=== PATIENT | male | born 1985 | race Caucasian/White ===

== ENCOUNTER 2017-07-11 02:30 | Emergency (ER) | payer OTHER, BC ==
[2017-07-11] MEDS ORDERED: Diphtheria,Pertussis(Acell),Tetanus Vaccine 0.5 ML Syringe IM ONE (02:40)
[2017-07-11] MEDS ORDERED: Lidocaine 1% 20 ML MDV INJECT ONE (02:44)
--- NOTE | 2017-07-11 02:47 | EDM.PDOC ---
ED HPI GENERAL MEDICAL PROBLEM - General Chief Complaint: Laceration Stated Complaint: CUT ON RIGHT RING FINGER Time Seen by Provider: 07/11/17 02:45 Source of Information: Reports: Patient - History of Present Illness INITIAL COMMENTS - FREE TEXT/NARRATIVE: HISTORY AND PHYSICAL: History of present illness: Patient presents with laceration distal fourth digit on the lateral border approximately 2 cm long, patient was at work, he cut some electrical tape with a razor slipping and cutting his finger into her No fever nausea vomiting chills sweats reddened no redness warmth or exudate Review of systems: As per history of present illness and below otherwise all systems reviewed and negative. Past medical history: As per history of present illness and as reviewed below otherwise noncontributory. Surgical history: As per history of present illness and as reviewed below otherwise noncontributory. Social history: No reported history of drug or alcohol abuse. Family history: As per history of present illness and as reviewed below otherwise noncontributory. Physical exam: HEENT: Atraumatic, normocephalic, pupils reactive, negative for conjunctival pallor or scleral icterus, mucous membranes moist, throat clear, neck supple, nontender, trachea midline. Lungs: Clear to auscultation, breath sounds equal bilaterally, chest nontender. Heart: S1S2, regular, negative for clicks, rubs, or JVD. Abdomen: Soft, nondistended, nontender. Negative for masses or hepatosplenomegaly. Negative for costovertebral tenderness. Pelvis: Stable nontender. Genitourinary: Deferred. Rectal: Deferred. Extremities: Atraumatic, negative for cords or calf pain. Neurovascular unremarkable. Neuro: Awake, alert, oriented. Cranial nerves II through XII unremarkable. Cerebellum unremarkable. Motor and sensory unremarkable throughout. Exam nonfocal. Diagnostics: Clinical Therapeutics: []Tetanus status is updated Lidocaine Wound cleansed and explored Tendon function intact perineum post suture Standard wound care instructions Sutures out in 10 days #3 5-0 Prolene sutures interrupted No complication no complaint Excellent approximation Impression: []2 cm linear laceration distal fourth digit Definitive disposition and diagnosis as appropriate pending reevaluation and review of above. Right 4-Ring finger Pain Score (Numeric/FACES): 2 - Related Data Allergies Allergy/AdvReac Type Severity Reaction Status Date / Time Sulfa (Sulfonamide Allergy Rash Verified 07/11/17 02:48 Antibiotics) Home Meds: Home Meds . [No Known Home Meds] 02/23/14 [History] Past Medical History - Past Health History Medical/Surgical History: Denies Medical/Surgical History Social & Family History - Alcohol Use Days Per Week of Alcohol Use: 0 - Recreational Drug Use Recreational Drug Use: No ED ROS GENERAL - Review of Systems Review Of Systems: ROS reveals no pertinent complaints other than HPI. ED EXAM, SKIN/RASH Exam: See Below Course - Vital Signs Last Recorded V/S: Last Vital Signs Temp 36.4 C 07/11/17 02:42 Pulse 75 07/11/17 02:42 Resp 17 07/11/17 02:42 BP 159/98 H 07/11/17 02:42 Pulse Ox 97 07/11/17 02:42 - Orders/Labs/Meds Orders: Active Orders 24 hr Category Date Time Status Vaccines to be Administered [RC] PER UNIT ROUTINE Care 07/11/17 02:41 Active Meds: Medications Discontinued Medications Generic Name Dose Route Start Last Admin Trade Name Christine PRN Reason Stop Dose Admin Bacitracin 1 dose 07/11/17 02:58 07/11/17 03:01 Bacitracin Oint 1 Gm TOP 07/11/17 02:59 1 dose ONETIME ONE Administration Diphtheria/Tetanus/Acell Pertussis 0.5 ml 07/11/17 02:40 07/11/17 02:53 Adacel IM 07/11/17 02:41 0.5 ml .ONCE ONE Administration Lidocaine HCl 20 ml 07/11/17 02:44 07/11/17 02:57 Xylocaine 1% INJECT 07/11/17 02:45 20 ml ONETIME ONE Administration Departure - Departure Time of Disposition: 03:04 Disposition: Home, Self-Care 01 Condition: Good Clinical Impression: Laceration - Discharge Information Referrals: PCP,None [Primary Care Provider] - Forms: ED Department Discharge Additional Instructions: Bacitracin Telfa dressing Splint for protection Standard wound care instructions Keep wound clean and dry for 48 hours Return if redness warmth pus drainage or fever nausea vomiting chills sweats should this develop Sutures out in 10 days, return to ER or primary care physician/occupational health clinic The following information is given to patients seen in the emergency department who are being discharged to home. This information is to outline your options for follow-up care. We provide all patients seen in our emergency department with a follow-up referral. The need for follow-up, as well as the timing and circumstances, are variable depending upon the specifics of your emergency department visit. If you don't have a primary care physician on staff, we will provide you with a referral. We always advise you to contact your personal physician following an emergency department visit to inform them of the circumstance of the visit and for follow-up with them and/or the need for any referrals to a consulting specialist. The emergency department will also refer you to a specialist when appropriate. This referral assures that you have the opportunity for follow-up care with a specialist. All of these measure are taken in an effort to provide you with optimal care, which includes your follow-up. Under all circumstances we always encourage you to contact your private physician who remains a resource for coordinating your care. When calling for follow-up care, please make the office aware that this follow-up is from your recent emergency room visit. If for any reason you are refused follow-up, please contact the [facility] emergency department at and asked to speak to the emergency department charge nurse. - My Orders Last 24 Hours: My Active Orders 07/11/17 02:41 Vaccines to be Administered [RC] PER UNIT ROUTINE - Assessment/Plan Last 24 Hours: My Active Orders 07/11/17 02:41 Vaccines to be Administered [RC] PER UNIT ROUTINE
[2017-07-11] MEDS ORDERED: Bacitracin Oint 1 GM U/D Packet TOP ONE (02:58)
[2017-07-11 03:34] VITALS: BP 135/90
== END 2017-07-11 03:20 | disposition home or self-care (01) ==
LOC: MW.ED 02:30
DX: S61.214A Laceration without foreign body of right ring finger without damage to nail, initial encounter (principal); Z88.2 Allergy status to sulfonamides; Z23 Encounter for immunization; W26.8XXA Contact with other sharp object(s), not elsewhere classified, initial encounter
CPT/HCPCS: 12001; 90471; 90715; 99282; 99283-25

== ENCOUNTER 2018-01-18 21:06 | Observation (INO) | payer BC, OTHER ==
[2018-01-18] MEDS ORDERED: Ondansetron 4 MG/2 ML SDV IVPUSH ONE (21:39)
[2018-01-18] MEDS ORDERED: Ketorolac 30 MG/ML SDV IVPUSH ONE (21:39)
[2018-01-18] MEDS ORDERED: Sodium Chloride 0.9% 1,000 ML IV ONE (21:39)
--- NOTE | 2018-01-18 21:47 | EDM.PDOC ---
<Alejandro Smiley - Last Filed: 01/18/18 23:47> ED HPI GENERAL MEDICAL PROBLEM - General Chief Complaint: Genitourinary Problem Stated Complaint: POSSIBLE UTI Time Seen by Provider: 01/18/18 21:11 suprapubic Pain Score (Numeric/FACES): 8 - Related Data Allergies Allergy/AdvReac Type Severity Reaction Status Date / Time Sulfa (Sulfonamide Allergy Rash Verified 01/18/18 21:47 Antibiotics) Home Meds: Home Meds ARIPiprazole [Abilify] 10 mg PO DAILY 01/19/18 [History] Cyclobenzaprine [Flexeril] 10 mg PO TID PRN 01/19/18 [History] Dicyclomine [Bentyl] 10 mg PO QID 01/19/18 [History] LORazepam 1 mg PO BEDTIME 01/19/18 [History] Lisinopril 20 mg PO DAILY 01/19/18 [History] Losartan [Cozaar] 50 mg PO DAILY 01/19/18 [History] Metoprolol Succinate [Toprol XL] 25 mg PO DAILY 01/19/18 [History] Ondansetron [Zofran ODT] 4 mg PO Q6H PRN 01/19/18 [History] Prazosin [Minpress] 1 mg PO BEDTIME 01/19/18 [History] Sertraline [Zoloft] 50 mg PO BEDTIME 01/19/18 [History] buPROPion [Wellbutrin] 300 mg PO DAILY 01/19/18 [History] hydrOXYzine HCl [hydrOXYzine] 50 mg PO BID PRN 01/19/18 [History] Sulfamethoxazole/Trimethoprim [Bactrim Ds Tablet] 1 each PO BID #20 tablet 01/20 [Rx] levETIRAcetam [Keppra] 500 mg PO BID 01/20/18 [History] Course - Vital Signs Last Recorded V/S: Last Vital Signs Temp 97.7 F 01/20/18 08:00 Pulse 91 01/20/18 08:51 Resp 19 01/20/18 08:00 BP 143/82 H 01/20/18 08:52 Pulse Ox 97 01/20/18 09:55 - Orders/Labs/Meds Labs: Laboratory Tests 04/14/18 04/14/18 04/14/18 Range/Units 21:37 21:37 21:37 WBC 16.86 H (4.0-11.0) K/uL RBC 4.81 (4.50-5.90) M/uL Hgb 14.7 (13.0-17.0) g/dL Hct 42.4 (38.0-50.0) % MCV 88.1 (80.0-98.0) fL MCH 30.6 (27.0-32.0) pg MCHC 34.7 (31.0-37.0) g/dL RDW Std Deviation 43.5 (28.0-62.0) fl RDW Coeff of Joan 14 (11.0-15.0) % Plt Count 264 (150-400) K/uL MPV 10.40 (7.40-12.00) fL Neut % (Auto) 77.1 (48.0-80.0) % Lymph % (Auto) 11.2 L (16.0-40.0) % [place] % (Auto) 11.0 (0.0-15.0) % Eos % (Auto) 0.5 (0.0-7.0) % Baso % (Auto) 0.2 (0.0-1.5) % Neut # (Auto) 13.0 H (1.4-5.7) K/uL Lymph # (Auto) 1.9 (0.6-2.4) K/uL [place] # (Auto) 1.9 H (0.0-0.8) K/uL Eos # (Auto) 0.1 (0.0-0.7) K/uL Baso # (Auto) 0.0 (0.0-0.1) K/uL Nucleated RBC % 0.0 /100WBC Nucleated RBCs # 0 K/uL Sodium 138 (136-148) mmol/L Potassium 4.5 (3.5-5.1) mmol/L Chloride 102 (98-107) mmol/L Carbon Dioxide 26.8 (21.0-32.0) mmol/L BUN 16 (7.0-18.0) mg/dL Creatinine 1.3 (0.8-1.3) mg/dL Est Cr Clr Drug Dosing TNP Estimated GFR (MDRD) > 60.0 ml/min Glucose 113 H (74-106) mg/dL Calcium 9.3 (8.5-10.1) mg/dL Total Bilirubin 0.8 (0.2-1.0) mg/dL AST 18 (15-37) IU/L ALT 26 (14-63) IU/L Alkaline Phosphatase 68 (46-116) U/L Total Protein 8.0 (6.4-8.2) g/dL Albumin 3.8 (3.4-5.0) g/dL Globulin 4.2 H (2.0-3.5) g/dL Albumin/Globulin Ratio 0.9 L (1.3-2.8) Amylase 32 (25-115) U/L Lipase 89 (73-393) U/L Urine Color Urine Appearance Urine pH (5.0-8.0) Ur Specific Hurley (1.001-1.035) Urine Protein (NEGATIVE) mg/dL Urine Glucose (UA) (NEGATIVE) mg/dL Urine Ketones (NEGATIVE) mg/dL Urine Occult Blood (NEGATIVE) Urine Nitrite (NEGATIVE) Urine Bilirubin (NEGATIVE) Urine Urobilinogen (<2.0) EU/dL Ur Leukocyte Esterase (NEGATIVE) Urine RBC (0-2/HPF) Urine WBC (0-5/HPF) Ur Epithelial Cells (NONE-FEW) Ur Renal Epithelial Cell Urine Bacteria (NEGATIVE) Chlamydia/GC Source C.trachomatis RNA (TMA) (Negative) N.gonorrhoeae RNA (TMA) (Negative) 01/18/18 01/18/18 Range/Units 22:17 22:17 WBC (4.0-11.0) K/uL RBC (4.50-5.90) M/uL Hgb (13.0-17.0) g/dL Hct (38.0-50.0) % MCV (80.0-98.0) fL MCH (27.0-32.0) pg MCHC (31.0-37.0) g/dL RDW Std Deviation (28.0-62.0) fl RDW Coeff of Joan (11.0-15.0) % Plt Count (150-400) K/uL MPV (7.40-12.00) fL Neut % (Auto) (48.0-80.0) % Lymph % (Auto) (16.0-40.0) % [place] % (Auto) (0.0-15.0) % Eos % (Auto) (0.0-7.0) % Baso % (Auto) (0.0-1.5) % Neut # (Auto) (1.4-5.7) K/uL Lymph # (Auto) (0.6-2.4) K/uL [place] # (Auto) (0.0-0.8) K/uL Eos # (Auto) (0.0-0.7) K/uL Baso # (Auto) (0.0-0.1) K/uL Nucleated RBC % /100WBC Nucleated RBCs # K/uL Sodium (136-148) mmol/L Potassium (3.5-5.1) mmol/L Chloride (98-107) mmol/L Carbon Dioxide (21.0-32.0) mmol/L BUN (7.0-18.0) mg/dL Creatinine (0.8-1.3) mg/dL Est Cr Clr Drug Dosing Estimated GFR (MDRD) ml/min Glucose (74-106) mg/dL Calcium (8.5-10.1) mg/dL Total Bilirubin (0.2-1.0) mg/dL AST (15-37) IU/L ALT (14-63) IU/L Alkaline Phosphatase (46-116) U/L Total Protein (6.4-8.2) g/dL Albumin (3.4-5.0) g/dL Globulin (2.0-3.5) g/dL Albumin/Globulin Ratio (1.3-2.8) Amylase (25-115) U/L Lipase (73-393) U/L Urine Color YELLOW Urine Appearance CLOUDY Urine pH 8.0 (5.0-8.0) Ur Specific [place] 1.015 (1.001-1.035) Urine Protein 30 (NEGATIVE) mg/dL Urine Glucose (UA) NEGATIVE (NEGATIVE) mg/dL Urine Ketones NEGATIVE (NEGATIVE) mg/dL Urine Occult Blood MODERATE (NEGATIVE) Urine Nitrite POSITIVE H (NEGATIVE) Urine Bilirubin NEGATIVE (NEGATIVE) Urine Urobilinogen 0.2 (<2.0) EU/dL Ur Leukocyte Esterase MODERATE (NEGATIVE) Urine RBC 5-8 (0-2/HPF) Urine WBC 50-75 (0-5/HPF) Ur Epithelial Cells OCCASIONAL (NONE-FEW) Ur Renal Epithelial Cell RARE Urine Bacteria 2+ H (NEGATIVE) Chlamydia/GC Source URINE C.trachomatis RNA (TMA) Negative (Negative) N.gonorrhoeae RNA (TMA) Negative (Negative) Meds: Medications Discontinued Medications Generic Name Dose Route Start Last Admin Trade Name Freq PRN Reason Stop Dose Admin Acetaminophen 650 mg 01/19/18 01:07 01/19/18 09:31 Tylenol PO 650 mg Q4H PRN Administration Pain Aripiprazole 10 mg 01/20/18 09:00 01/20/18 08:51 Abilify PO 10 mg DAILY LEXUS Administration Bupropion HCl 300 mg 01/20/18 09:00 01/20/18 08:52 Wellbutrin PO 300 mg DAILY LEXUS Administration Cyclobenzaprine HCl 10 mg 01/19/18 21:43 01/20/18 09:04 Flexeril PO 10 mg TID PRN Administration Muscle Spasm Hydroxyzine HCl 50 mg 01/19/18 23:03 01/19/18 23:46 Atarax PO 50 mg BID PRN Administration Anxiety Sodium Chloride 1,000 mls @ 999 mls/hr 01/18/18 21:39 01/18/18 21:45 Normal Saline IV 01/18/18 22:39 999 mls/hr STAT ONE Administration Ceftriaxone Sodium/Dextrose 1 50 mls @ 100 mls/hr 01/18/18 23:09 01/18/18 23: 33 gm/ Premix IV 01/18/18 23:38 100 mls/hr ONETIME ONE Administration Ceftriaxone Sodium/Dextrose 1 50 mls @ 100 mls/hr 01/19/18 23:00 gm/ Premix IV Q24H LEXUS Sodium Chloride 1,000 mls @ 125 mls/hr 01/19/18 01:15 01/20/18 00:52 Normal Saline IV 125 mls/hr ASDIRECTED LEXUS Administration Ceftriaxone Sodium 1,000 mg/ 50 mls @ 100 mls/hr 01/19/18 23:00 01/19/18 23: 46 Dextrose/Water IV 100 mls/hr Q24H LEXUS Administration Ibuprofen 400 mg 01/19/18 16:59 01/19/18 17:46 Motrin PO 400 mg Q6H PRN Administration Pain Iopamidol 100 ml 01/18/18 21:53 01/18/18 22:13 Isovue-370 (76%) IVPUSH 01/18/18 21:54 100 ml ONETIME STA Administration Ketorolac Tromethamine 30 mg 01/18/18 21:39 01/18/18 21:46 Toradol IVPUSH 01/18/18 21:40 30 mg ONETIME ONE Administration Levetiracetam 500 mg 01/20/18 09:00 01/20/18 08:52 Keppra PO 500 mg BID LEXUS Administration Lisinopril 20 mg 01/20/18 09:00 01/20/18 08:52 Prinivil PO 20 mg DAILY LEXUS Administration Lorazepam 1 mg 01/20/18 21:00 Ativan PO BEDTIME LEXUS Losartan Potassium 50 mg 01/20/18 09:00 01/20/18 08:52 Cozaar PO 50 mg DAILY LEXUS Administration Metoprolol Succinate 25 mg 01/20/18 09:00 01/20/18 08:51 Toprol Xl PO 25 mg DAILY LEXUS Administration Morphine Sulfate 2 mg 01/19/18 01:07 Morphine IVPUSH Q3H PRN Pain (severe 7-10) Morphine Sulfate 2 mg 01/19/18 10:22 01/20/18 10:08 Morphine IVPUSH 2 mg Q3H PRN Administration Pain (severe 7-10) Ondansetron HCl 4 mg 01/18/18 21:39 01/18/18 21:46 Zofran IVPUSH 01/18/18 21:40 4 mg ONETIME ONE Administration Prazosin HCl 1 mg 01/20/18 21:00 Minpress PO BEDTIME LEXUS Prazosin HCl 1 mg 01/20/18 23:22 Minpress PO 01/20/18 23:23 ONETIME ONE Prazosin HCl 1 mg 01/19/18 23:22 01/20/18 00:23 Minpress PO 01/19/18 23:23 1 mg ONETIME ONE Administration Sertraline HCl 50 mg 01/20/18 21:00 Zoloft PO BEDTIME [facility] Departure - Departure Time of Disposition: 23:47 Disposition: Refer to Observation Condition: Good Clinical Impression: UTI, Urinary tract infectious disease - Discharge Information <Natali Ott - Last Filed: 01/23/18 16:17> ED HPI GENERAL MEDICAL PROBLEM - General Source of Information: Reports: Patient History Limitations: Reports: No Limitations - History of Present Illness INITIAL COMMENTS - FREE TEXT/NARRATIVE: HISTORY AND PHYSICAL: History of present illness: Patient is a 32-year-old male who presents to the emergency room complaints of dysuria and left lower abdominal pain since this morning. He states that he is having discomfort while urinating, chills, nausea and pain to his left lower abdomen. States he is in "so much pain I feel like I could pass out". He is concerned he may have a UTI or a kidney stone. He denies any fever, chest pain or shortness of breath. Denies diarrhea but does state he has been having loose frequent stools up to 6 times per day. He has been doctoring with multiple providers as he has been told he has a "malabsorption problem" to where he will have chronic abdominal pain and occult blood in his stools. He had a colonoscopy November which was normal. A CT of the "small bowel" which showed no significant findings. States today's pain is "different" and more severe. Denies any penile lesions, discharge, testicular swelling/errythema. Denies any groin pain or concerns of hernias. Review of systems: As per history of present illness and below otherwise all systems reviewed and negative. Past medical history: As per history of present illness and as reviewed below otherwise noncontributory. Surgical history: As per history of present illness and as reviewed below otherwise noncontributory. Social history: No reported history of drug or alcohol abuse. Family history: As per history of present illness and as reviewed below otherwise noncontributory. Physical exam: General: Well-developed and well-nourished 32-year-old male. Alert and oriented. Nontoxic appearing and in no acute distress. HEENT: Atraumatic, normocephalic, pupils equal and reactive bilaterally, negative for conjunctival pallor or scleral icterus, mucous membranes moist, throat clear, neck supple, nontender, trachea midline. No drooling or trismus noted. No meningeal signs Lungs: Clear to auscultation, breath sounds equal bilaterally, chest nontender. Heart: S1S2, regular rate and rhythm without overt murmur Abdomen: Soft, nondistended, tenderness to the left upper quadrant and left lower quadrant. Tenderness of the pubis. Negative for masses or hepatosplenomegaly. Negative for costovertebral tenderness. Pelvis: Stable nontender. Genitourinary: Deferred. Rectal: Deferred. Skin: Intact, warm, dry. No lesions or rashes noted. Extremities: Atraumatic, negative for cords or calf pain. Neurovascular unremarkable. Neuro: Awake, alert, oriented. Cranial nerves II through XII unremarkable. Cerebellum unremarkable. Motor and sensory unremarkable throughout. Exam nonfocal. Notes: Routine lab work along with a CT with be obtained. Will give IV fluids and medication for comfort. Will continue to monitor. Diagnostics: CBC, CMP, amylase, lipase, UA, CT abdomen and pelvis, G/C urine Therapeutics: IV fluid, Zofran, Toradol Impression: Abdominal pain Plan: [] Definitive disposition and diagnosis as appropriate pending reevaluation and review of above. Onset: Today Duration: Hour(s): Location: Reports: Abdomen Past Medical History - Past Health History Medical/Surgical History: Denies Medical/Surgical History Cardiovascular History: Reports: Hypertension Respiratory History: Reports: Asthma - Past Surgical History Cardiovascular Surgical History: Reports: None Respiratory Surgical History: Reports: None Social & Family History - Family History Family Medical History: Noncontributory - Tobacco Use Smoking Status *Q: Current Every Day Smoker Years of Tobacco use: 2 Packs/Tins Daily: 1 - Caffeine Use Caffeine Use: Reports: Energy Drinks, Soda Caffeine Use Comment: 1 drink every 3 days - Alcohol Use Days Per Week of Alcohol Use: 0 - Recreational Drug Use Recreational Drug Use: No ED ROS GENERAL - Review of Systems Review Of Systems: ROS reveals no pertinent complaints other than HPI. ED EXAM, RENAL/ - Physical Exam Exam: See Below (See dictation) Course - Vital Signs Last Recorded V/S: Last Vital Signs Temp 97.7 F 01/20/18 08:00 Pulse 91 01/20/18 08:51 Resp 19 01/20/18 08:00 BP 143/82 H 01/20/18 08:52 Pulse Ox 97 01/20/18 09:55 - Orders/Labs/Meds Labs: Laboratory Tests 01/18/18 01/18/18 01/18/18 Range/Units 21:37 21:37 21:37 WBC 16.86 H (4.0-11.0) K/uL RBC 4.81 (4.50-5.90) M/uL Hgb 14.7 (13.0-17.0) g/dL Hct 42.4 (38.0-50.0) % MCV 88.1 (80.0-98.0) fL MCH 30.6 (27.0-32.0) pg MCHC 34.7 (31.0-37.0) g/dL RDW Std Deviation 43.5 (28.0-62.0) fl RDW Coeff of Joan 14 (11.0-15.0) % Plt Count 264 (150-400) K/uL MPV 10.40 (7.40-12.00) fL Neut % (Auto) 77.1 (48.0-80.0) % Lymph % (Auto) 11.2 L (16.0-40.0) % [place] % (Auto) 11.0 (0.0-15.0) % Eos % (Auto) 0.5 (0.0-7.0) % Baso % (Auto) 0.2 (0.0-1.5) % Neut # (Auto) 13.0 H (1.4-5.7) K/uL Lymph # (Auto) 1.9 (0.6-2.4) K/uL [place] # (Auto) 1.9 H (0.0-0.8) K/uL Eos # (Auto) 0.1 (0.0-0.7) K/uL Baso # (Auto) 0.0 (0.0-0.1) K/uL Nucleated RBC % 0.0 /100WBC Nucleated RBCs # 0 K/uL Sodium 138 (136-148) mmol/L Potassium 4.5 (3.5-5.1) mmol/L Chloride 102 (98-107) mmol/L Carbon Dioxide 26.8 (21.0-32.0) mmol/L BUN 16 (7.0-18.0) mg/dL Creatinine 1.3 (0.8-1.3) mg/dL Est Cr Clr Drug Dosing TNP Estimated GFR (MDRD) > 60.0 ml/min Glucose 113 H (74-106) mg/dL Calcium 9.3 (8.5-10.1) mg/dL Total Bilirubin 0.8 (0.2-1.0) mg/dL AST 18 (15-37) IU/L ALT 26 (14-63) IU/L Alkaline Phosphatase 68 (46-116) U/L Total Protein 8.0 (6.4-8.2) g/dL Albumin 3.8 (3.4-5.0) g/dL Globulin 4.2 H (2.0-3.5) g/dL Albumin/Globulin Ratio 0.9 L (1.3-2.8) Amylase 32 (25-115) U/L Lipase 89 (73-393) U/L Urine Color Urine Appearance Urine pH (5.0-8.0) Ur Specific [place] (1.001-1.035) Urine Protein (NEGATIVE) mg/dL Urine Glucose (UA) (NEGATIVE) mg/dL Urine Ketones (NEGATIVE) mg/dL Urine Occult Blood (NEGATIVE) Urine Nitrite (NEGATIVE) Urine Bilirubin (NEGATIVE) Urine Urobilinogen (<2.0) EU/dL Ur Leukocyte Esterase (NEGATIVE) Urine RBC (0-2/HPF) Urine WBC (0-5/HPF) Ur Epithelial Cells (NONE-FEW) Ur Renal Epithelial Cell Urine Bacteria (NEGATIVE) Chlamydia/GC Source C.trachomatis RNA (TMA) (Negative) N.gonorrhoeae RNA (TMA) (Negative) 01/18/18 01/18/18 Range/Units 22:17 22:17 WBC (4.0-11.0) K/uL RBC (4.50-5.90) M/uL Hgb (13.0-17.0) g/dL Hct (38.0-50.0) % MCV (80.0-98.0) fL MCH (27.0-32.0) pg MCHC (31.0-37.0) g/dL RDW Std Deviation (28.0-62.0) fl RDW Coeff of Joan (11.0-15.0) % Plt Count (150-400) K/uL MPV (7.40-12.00) fL Neut % (Auto) (48.0-80.0) % Lymph % (Auto) (16.0-40.0) % [place] % (Auto) (0.0-15.0) % Eos % (Auto) (0.0-7.0) % Baso % (Auto) (0.0-1.5) % Neut # (Auto) (1.4-5.7) K/uL Lymph # (Auto) (0.6-2.4) K/uL [place] # (Auto) (0.0-0.8) K/uL Eos # (Auto) (0.0-0.7) K/uL Baso # (Auto) (0.0-0.1) K/uL Nucleated RBC % /100WBC Nucleated RBCs # K/uL Sodium (136-148) mmol/L Potassium (3.5-5.1) mmol/L Chloride (98-107) mmol/L Carbon Dioxide (21.0-32.0) mmol/L BUN (7.0-18.0) mg/dL Creatinine (0.8-1.3) mg/dL Est Cr Clr Drug Dosing Estimated GFR (MDRD) ml/min Glucose (74-106) mg/dL Calcium (8.5-10.1) mg/dL Total Bilirubin (0.2-1.0) mg/dL AST (15-37) IU/L ALT (14-63) IU/L Alkaline Phosphatase (46-116) U/L Total Protein (6.4-8.2) g/dL Albumin (3.4-5.0) g/dL Globulin (2.0-3.5) g/dL Albumin/Globulin Ratio (1.3-2.8) Amylase (25-115) U/L Lipase (73-393) U/L Urine Color YELLOW Urine Appearance CLOUDY Urine pH 8.0 (5.0-8.0) Ur Specific [place] 1.015 (1.001-1.035) Urine Protein 30 (NEGATIVE) mg/dL Urine Glucose (UA) NEGATIVE (NEGATIVE) mg/dL Urine Ketones NEGATIVE (NEGATIVE) mg/dL Urine Occult Blood MODERATE (NEGATIVE) Urine Nitrite POSITIVE H (NEGATIVE) Urine Bilirubin NEGATIVE (NEGATIVE) Urine Urobilinogen 0.2 (<2.0) EU/dL Ur Leukocyte Esterase MODERATE (NEGATIVE) Urine RBC 5-8 (0-2/HPF) Urine WBC 50-75 (0-5/HPF) Ur Epithelial Cells OCCASIONAL (NONE-FEW) Ur Renal Epithelial Cell RARE Urine Bacteria 2+ H (NEGATIVE) Chlamydia/GC Source URINE C.trachomatis RNA (TMA) Negative (Negative) N.gonorrhoeae RNA (TMA) Negative (Negative) Meds: Medications Discontinued Medications Generic Name Dose Route Start Last Admin Trade Name Freq PRN Reason Stop Dose Admin Acetaminophen 650 mg 01/19/18 01:07 01/19/18 09:31 Tylenol PO 650 mg Q4H PRN Administration Pain Aripiprazole 10 mg 01/20/18 09:00 01/20/18 08:51 Abilify PO 10 mg DAILY LEXUS Administration Bupropion HCl 300 mg 01/20/18 09:00 01/20/18 08:52 Wellbutrin PO 300 mg DAILY LEXUS Administration Cyclobenzaprine HCl 10 mg 01/19/18 21:43 01/20/18 09:04 Flexeril PO 10 mg TID PRN Administration Muscle Spasm Hydroxyzine HCl 50 mg 01/19/18 23:03 01/19/18 23:46 Atarax PO 50 mg BID PRN Administration Anxiety Sodium Chloride 1,000 mls @ 999 mls/hr 01/18/18 21:39 01/18/18 21:45 Normal Saline IV 01/18/18 22:39 999 mls/hr STAT ONE Administration Ceftriaxone Sodium/Dextrose 1 50 mls @ 100 mls/hr 01/18/18 23:09 01/18/18 23: 33 gm/ Premix IV 01/18/18 23:38 100 mls/hr ONETIME ONE Administration Ceftriaxone Sodium/Dextrose 1 50 mls @ 100 mls/hr 01/19/18 23:00 gm/ Premix IV Q24H LEXUS Sodium Chloride 1,000 mls @ 125 mls/hr 01/19/18 01:15 01/20/18 00:52 Normal Saline IV 125 mls/hr ASDIRECTED LEXUS Administration Ceftriaxone Sodium 1,000 mg/ 50 mls @ 100 mls/hr 01/19/18 23:00 01/19/18 23: 46 Dextrose/Water IV 100 mls/hr Q24H LEXUS Administration Ibuprofen 400 mg 01/19/18 16:59 01/19/18 17:46 Motrin PO 400 mg Q6H PRN Administration Pain Iopamidol 100 ml 01/18/18 21:53 01/18/18 22:13 Isovue-370 (76%) IVPUSH 01/18/18 21:54 100 ml ONETIME STA Administration Ketorolac Tromethamine 30 mg 01/18/18 21:39 01/18/18 21:46 Toradol IVPUSH 01/18/18 21:40 30 mg ONETIME ONE Administration Levetiracetam 500 mg 01/20/18 09:00 01/20/18 08:52 Keppra PO 500 mg BID LEXUS Administration Lisinopril 20 mg 01/20/18 09:00 01/20/18 08:52 Prinivil PO 20 mg DAILY LEXUS Administration Lorazepam 1 mg 01/20/18 21:00 Ativan PO BEDTIME LEXUS Losartan Potassium 50 mg 01/20/18 09:00 01/20/18 08:52 Cozaar PO 50 mg DAILY LEXUS Administration Metoprolol Succinate 25 mg 01/20/18 09:00 01/20/18 08:51 Toprol Xl PO 25 mg DAILY LEXUS Administration Morphine Sulfate 2 mg 01/19/18 01:07 Morphine IVPUSH Q3H PRN Pain (severe 7-10) Morphine Sulfate 2 mg 01/19/18 10:22 01/20/18 10:08 Morphine IVPUSH 2 mg Q3H PRN Administration Pain (severe 7-10) Ondansetron HCl 4 mg 01/18/18 21:39 01/18/18 21:46 Zofran IVPUSH 01/18/18 21:40 4 mg ONETIME ONE Administration Prazosin HCl 1 mg 01/20/18 21:00 Minpress PO BEDTIME LEXUS Prazosin HCl 1 mg 01/20/18 23:22 Minpress PO 01/20/18 23:23 ONETIME ONE Prazosin HCl 1 mg 01/19/18 23:22 01/20/18 00:23 Minpress PO 01/19/18 23:23 1 mg ONETIME ONE Administration Sertraline HCl 50 mg 01/20/18 21:00 Zoloft PO BEDTIME LEXUS
[2018-01-18] MEDS ORDERED: Iopamidol 755 Mg/ML 100 ML Bottle IVPUSH STA (21:53)
[2018-01-18 22:05] LABS: CHLORIDE,CL 102 mmol/L (98-107); SODIUM,NA 138 mmol/L (136-148)
[2018-01-18] MEDS ORDERED: cefTRIAXone 1 GM in Premix Bag 1 BAG IV ONE (23:09)
[2018-01-19] MEDS ORDERED: Morphine 10 MG/ML Syringe IVPUSH PRN (01:07)
[2018-01-19] MEDS ORDERED: Acetaminophen 325 MG Tab PO PRN (01:07)
[2018-01-19 06:10] LABS: CHLORIDE,CL 105 mmol/L (98-107); SODIUM,NA 141 mmol/L (136-148)
[2018-01-19] MEDS: Sodium Chloride 0.9% 1,000 ML IV SCH ×2 (09:44→16:25)
--- NOTE | 2018-01-19 09:58 | PCM.HP ---
H&P History of Present Illness - General Admit Problem/Dx: Admission Diagnosis/Problem Admission Diagnosis/Problem UTI, Urinary tract infectious disease - History of Present Illness Initial Comments - Free Text/Narative: 32 yo male who presents with one day history of fever, rigors, and left lower quadrant pain. He was evaluated in the ED noted to have pyuria, WBC of 16,[address] scan of abdomen that was unremarkable. suprapubic Pain Score (Numeric/FACES): 8 - Related Data Allergies/Adverse Reactions: Allergies Allergy/AdvReac Type Severity Reaction Status Date / Time Sulfa (Sulfonamide Allergy Rash Verified 01/18/18 21:47 Antibiotics) Home Medications: Home Meds ARIPiprazole [Abilify] 0 01/19/18 [History] LORazepam 0 mg 01/19/18 [History] Metoprolol Succinate [Toprol XL 50mg] 1 tab PO DAILY 01/19/18 [History] Prazosin [Minpress] 0 01/19/18 [History] Sertraline [Zoloft] 0 01/19/18 [History] buPROPion [Wellbutrin] 50 mg PO DAILY 01/19/18 [History] levETIRAcetam [Keppra XR] 0 mg 01/19/18 [History] Past Medical History - Past Health History Medical/Surgical History: Denies Medical/Surgical History Cardiovascular History: Reports: Hypertension Respiratory History: Reports: Asthma Gastrointestinal History: Reports: Other (See Below) Other Gastrointestinal History: Malabsorption Neurological History: Reports: Seizure Psychiatric History: Reports: Depression Oncologic (Cancer) History: Reports: Other (See Below) Other Oncologic History: adrenal - Infectious Disease History Infectious Disease History: Reports: None - Past Surgical History Other HEENT Surgeries/Procedures: wears eyeglasses Cardiovascular Surgical History: Reports: None Respiratory Surgical History: Reports: None GI Surgical History: Reports: Colonoscopy Social & Family History - Family History Family Medical History: Noncontributory - Tobacco Use Smoking Status *Q: Current Every Day Smoker Years of Tobacco use: 3 Packs/Tins Daily: 1 Second Hand Smoke Exposure: No - Caffeine Use Caffeine Use: Reports: Soda Caffeine Use Comment: 1 drink every 3 days - Alcohol Use Days Per Week of Alcohol Use: 0 - Recreational Drug Use Recreational Drug Use: No H&P Review of Systems - Review of Systems: Review Of Systems: ROS reveals no pertinent complaints other than HPI. Exam - Exam Exam: See Below - Vital Signs Vital Signs: Last Vital Signs Temp 36.6 C 01/19/18 08:00 Pulse 96 01/19/18 08:00 Resp 18 01/19/18 08:00 BP 152/86 H 01/19/18 08:00 Pulse Ox 96 01/19/18 08:00 Weight: 89.222 kg - Exam General: Alert, Oriented HEENT: Mucosa Moist & [place] Lungs: Clear to Auscultation, Normal Respiratory Effort Cardiovascular: Regular Rate, Regular Rhythm GI/Abdominal Exam: Normal Bowel Sounds, Soft, Non-Tender, No Distention, No Mass Extremities: Non-Tender, No Pedal Edema Skin: Warm, Dry, Intact Neurological: No: Focal Deficit - Patient Data Lab Results Last 24 hrs: Laboratory Results - last 24 hr 01/18/18 01/18/18 01/18/18 Range/Units 21:37 21:37 21:37 WBC 16.86 H (4.0-11.0) K/uL RBC 4.81 (4.50-5.90) M/uL Hgb 14.7 (13.0-17.0) g/dL Hct 42.4 (38.0-50.0) % MCV 88.1 (80.0-98.0) fL MCH 30.6 (27.0-32.0) pg MCHC 34.7 (31.0-37.0) g/dL RDW Std Deviation 43.5 (28.0-62.0) fl RDW Coeff of Joan 14 (11.0-15.0) % Plt Count 264 (150-400) K/uL MPV 10.40 (7.40-12.00) fL Neut % (Auto) 77.1 (48.0-80.0) % Lymph % (Auto) 11.2 L (16.0-40.0) % [place] % (Auto) 11.0 (0.0-15.0) % Eos % (Auto) 0.5 (0.0-7.0) % Baso % (Auto) 0.2 (0.0-1.5) % Neut # (Auto) 13.0 H (1.4-5.7) K/uL Lymph # (Auto) 1.9 (0.6-2.4) K/uL [place] # (Auto) 1.9 H (0.0-0.8) K/uL Eos # (Auto) 0.1 (0.0-0.7) K/uL Baso # (Auto) 0.0 (0.0-0.1) K/uL Nucleated RBC % 0.0 /100WBC Nucleated RBCs # 0 K/uL Sodium 138 (136-148) mmol/L Potassium 4.5 (3.5-5.1) mmol/L Chloride 102 (98-107) mmol/L Carbon Dioxide 26.8 (21.0-32.0) mmol/L BUN 16 (7.0-18.0) mg/dL Creatinine 1.3 (0.8-1.3) mg/dL Est Cr Clr Drug Dosing TNP Estimated GFR (MDRD) > 60.0 ml/min Glucose 113 H (74-106) mg/dL Calcium 9.3 (8.5-10.1) mg/dL Total Bilirubin 0.8 (0.2-1.0) mg/dL AST 18 (15-37) IU/L ALT 26 (14-63) IU/L Alkaline Phosphatase 68 (46-116) U/L Total Protein 8.0 (6.4-8.2) g/dL Albumin 3.8 (3.4-5.0) g/dL Globulin 4.2 H (2.0-3.5) g/dL Albumin/Globulin Ratio 0.9 L (1.3-2.8) Amylase 32 (25-115) U/L Lipase 89 (73-393) U/L Urine Color Urine Appearance Urine pH (5.0-8.0) Ur Specific [place] (1.001-1.035) Urine Protein (NEGATIVE) mg/dL Urine Glucose (UA) (NEGATIVE) mg/dL Urine Ketones (NEGATIVE) mg/dL Urine Occult Blood (NEGATIVE) Urine Nitrite (NEGATIVE) Urine Bilirubin (NEGATIVE) Urine Urobilinogen (<2.0) EU/dL Ur Leukocyte Esterase (NEGATIVE) Urine RBC (0-2/HPF) Urine WBC (0-5/HPF) Ur Epithelial Cells (NONE-FEW) Ur Renal Epithelial Cell Urine Bacteria (NEGATIVE) 01/18/18 01/19/18 01/19/18 Range/Units 22:17 05:37 05:37 WBC 13.21 H (4.0-11.0) K/uL RBC 4.75 (4.50-5.90) M/uL Hgb 14.3 (13.0-17.0) g/dL Hct 42.5 (38.0-50.0) % MCV 89.5 (80.0-98.0) fL MCH 30.1 (27.0-32.0) pg MCHC 33.6 (31.0-37.0) g/dL RDW Std Deviation 44.2 (28.0-62.0) fl RDW Coeff of Joan 14 (11.0-15.0) % Plt Count 230 (150-400) K/uL MPV 10.30 (7.40-12.00) fL Neut % (Auto) 76.1 (48.0-80.0) % Lymph % (Auto) 10.2 L (16.0-40.0) % [place] % (Auto) 12.4 (0.0-15.0) % Eos % (Auto) 1.1 (0.0-7.0) % Baso % (Auto) 0.2 (0.0-1.5) % Neut # (Auto) 10.0 H (1.4-5.7) K/uL Lymph # (Auto) 1.4 (0.6-2.4) K/uL [place] # (Auto) 1.6 H (0.0-0.8) K/uL Eos # (Auto) 0.2 (0.0-0.7) K/uL Baso # (Auto) 0.0 (0.0-0.1) K/uL Nucleated RBC % 0.0 /100WBC Nucleated RBCs # 0 K/uL Sodium 141 (136-148) mmol/L Potassium 4.0 (3.5-5.1) mmol/L Chloride 105 (98-107) mmol/L Carbon Dioxide 29.8 (21.0-32.0) mmol/L BUN 13 (7.0-18.0) mg/dL Creatinine 1.3 (0.8-1.3) mg/dL Est Cr Clr Drug Dosing 82.33 Estimated GFR (MDRD) > 60.0 ml/min Glucose 110 H (74-106) mg/dL Calcium 8.7 (8.5-10.1) mg/dL Total Bilirubin (0.2-1.0) mg/dL AST (15-37) IU/L ALT (14-63) IU/L Alkaline Phosphatase (46-116) U/L Total Protein (6.4-8.2) g/dL Albumin (3.4-5.0) g/dL Globulin (2.0-3.5) g/dL Albumin/Globulin Ratio (1.3-2.8) Amylase (25-115) U/L Lipase (73-393) U/L Urine Color YELLOW Urine Appearance CLOUDY Urine pH 8.0 (5.0-8.0) Ur Specific [place] 1.015 (1.001-1.035) Urine Protein 30 (NEGATIVE) mg/dL Urine Glucose (UA) NEGATIVE (NEGATIVE) mg/dL Urine Ketones NEGATIVE (NEGATIVE) mg/dL Urine Occult Blood MODERATE (NEGATIVE) Urine Nitrite POSITIVE H (NEGATIVE) Urine Bilirubin NEGATIVE (NEGATIVE) Urine Urobilinogen 0.2 (<2.0) EU/dL Ur Leukocyte Esterase MODERATE (NEGATIVE) Urine RBC 5-8 (0-2/HPF) Urine WBC 50-75 (0-5/HPF) Ur Epithelial Cells OCCASIONAL (NONE-FEW) Ur Renal Epithelial Cell RARE Urine Bacteria 2+ H (NEGATIVE) Result Diagrams: 01/19/18 05:37 01/19/18 05:37 Vinayak Results Last 24 hrs: Microbiology 01/19/18 01:22 Anaerobic Blood Culture - Final Blood Problem List Initiated/Reviewed/Updated: Yes Orders Last 24hrs: Active Orders 24 hr Category Date Time Status Patient Status [ADT] Stat ADT 01/18/18 23:49 Active Oxygen Therapy [RC] PRN Care 01/19/18 09:55 Ordered Up ad Denise [RC] ASDIRECTED Care 01/19/18 09:55 Ordered VTE/DVT Education [RC] PER UNIT ROUTINE Care 01/19/18 09:55 Ordered Vital Signs [RC] Q4H Care 01/19/18 09:55 Ordered Heart Healthy Diet [DIET] Diet 01/19/18 Breakfast Active Abdomen Pelvis w Cont [CT] Stat Exams 01/18/18 21:39 Taken BASIC METABOLIC PANEL,BMP [CHEM] AM Lab 01/20/18 05:11 Ordered CBC WITH AUTO DIFF [HEME] AM Lab 01/20/18 05:11 Ordered CHLAMYDIA AND GONORRHEA BY TMA Stat Lab 01/18/18 22:17 Received CULTURE BLOOD [BC] Routine Lab 01/19/18 01:18 Received CULTURE BLOOD [BC] Routine Lab 01/19/18 01:22 Results CULTURE URINE [RM] Stat Lab 01/18/18 22:17 Ordered UA W/MICROSCOPIC [URIN] Stat Lab 01/18/18 22:17 Ordered Acetaminophen [Tylenol] Med 01/19/18 01:07 Active 650 mg PO Q4H PRN Morphine Med 01/19/18 01:07 Active 2 mg IVPUSH Q3H PRN Sodium Chloride 0.9% [Normal Saline] 1,000 ml Med 01/19/18 01:15 Active IV ASDIRECTED cefTRIAXone [Rocephin in Dextrose,Iso-Osm 1 GM/50 ML] 1 Med 01/19/18 23:00 Active gm Premix Bag 1 bag IV Q24H Sequential Compression Device [OM.PC] Per Unit Routine Oth 01/19/18 09:55 Ordered Resuscitation Status Routine Resus Stat 01/19/18 09:55 Ordered Medication Orders Acetaminophen (Tylenol) 650 mg PO Q4H PRN PRN Reason: Pain Last Admin: 01/19/18 09:31 Dose: 650 mg Ceftriaxone Sodium/Dextrose 1 (gm/ Premix) 50 mls @ 100 mls/hr IV Q24H LEXUS Sodium Chloride (Normal Saline) 1,000 mls @ 125 mls/hr IV ASDIRECTED LEXUS Last Admin: 01/19/18 09:44 Dose: 125 mls/hr Morphine Sulfate (Morphine) 2 mg IVPUSH Q3H PRN PRN Reason: Pain (severe 7-10) Assessment/Plan Comment:: 32 yo male admitted with pyelonephritis. We will treat with IV fluids and Rocephin. Urine cultures are pending.
[2018-01-19] MEDS ORDERED: Morphine 4 MG/ML Syringe IVPUSH PRN (10:22)
[2018-01-19] MEDS ORDERED: Ibuprofen 400 MG Tab PO PRN (16:59)
[2018-01-19] MEDS ORDERED: Cyclobenzaprine 10 MG Tab PO PRN (21:43)
[2018-01-19] MEDS ORDERED: cefTRIAXone 1,000 MG in Dextrose 5% in Water 50 ML IV SCH ×2 (23:00)
[2018-01-19] MEDS ORDERED: cefTRIAXone 1 GM in Premix Bag 1 BAG IV SCH (23:00)
[2018-01-19] MEDS ORDERED: hydrOXYzine HCl 25 MG Tab PO PRN (23:03)
[2018-01-19] MEDS ORDERED: Prazosin 1 MG Cap PO ONE (23:22)
[2018-01-20] MEDS: Sodium Chloride 0.9% 1,000 ML IV SCH (00:52)
[2018-01-20 06:28] LABS: CHLORIDE,CL 110 mmol/L (98-107); SODIUM,NA 142 mmol/L (136-148)
[2018-01-20 08:02] VITALS: BP 143/82
[2018-01-20] MEDS ORDERED: ARIPiprazole 10 MG Tab PO SCH (09:00)
[2018-01-20] MEDS ORDERED: Lisinopril 10 MG Tab PO SCH (09:00)
[2018-01-20] MEDS ORDERED: buPROPion 100 MG Tab PO SCH (09:00)
[2018-01-20] MEDS ORDERED: Losartan 50 MG Tab PO SCH (09:00)
[2018-01-20] MEDS ORDERED: Metoprolol Succinate 25 MG Tab.ER PO SCH (09:00)
[2018-01-20] MEDS ORDERED: levETIRAcetam 500 MG Tab PO SCH (09:00)
--- NOTE | 2018-01-20 10:12 | PCM.DCSUM1 ---
Discharge Summary - Discharge Data Discharge Date: 01/20/18 Discharge Disposition: Home, Self-Care 01 Condition: Good - Patient Summary/Data Hospital Course: 32 yo male who presents with one day history of fever, rigors, and left lower quadrant pain. He was evaluated in the ED noted to have pyuria, WBC of 16,[address] scan of abdomen that was unremarkable. He was admitted for probable pyelonephritis and treated with IV Rocephin. His leukocytosis and fevers resolved. Today he is requesting discharge. We will discharge on Bactrim DS BID for ten more days. Patient is to follow up with Kaden Burris at [facility]. - Patient Instructions Diet: Regular Diet as Tolerated Activity: As Tolerated - Discharge Plan Prescriptions/Med Rec: Sulfamethoxazole/Trimethoprim [Bactrim Ds Tablet] 1 each PO BID #20 tablet Home Medications: Home Meds ARIPiprazole [Abilify] 10 mg PO DAILY 01/19/18 [History] Cyclobenzaprine [Flexeril] 10 mg PO TID PRN 01/19/18 [History] Dicyclomine [Bentyl] 10 mg PO QID 01/19/18 [History] LORazepam 1 mg PO BEDTIME 01/19/18 [History] Lisinopril 20 mg PO DAILY 01/19/18 [History] Losartan [Cozaar] 50 mg PO DAILY 01/19/18 [History] Metoprolol Succinate [Toprol XL] 25 mg PO DAILY 01/19/18 [History] Ondansetron [Zofran ODT] 4 mg PO Q6H PRN 01/19/18 [History] Prazosin [Minpress] 1 mg PO BEDTIME 01/19/18 [History] Sertraline [Zoloft] 50 mg PO BEDTIME 01/19/18 [History] buPROPion [Wellbutrin] 300 mg PO DAILY 01/19/18 [History] hydrOXYzine HCl [hydrOXYzine] 50 mg PO BID PRN 01/19/18 [History] Sulfamethoxazole/Trimethoprim [Bactrim Ds Tablet] 1 each PO BID #20 tablet 01/20 [Rx] levETIRAcetam [Keppra] 500 mg PO BID 01/20/18 [History] Patient Handouts: Urinary Tract Infection, Adult, [id number] Referrals: Neda Burris NP [Ordering Only Provider] - 02/03/18 9:45 am - Patient Data Vitals - Most Recent: Last Vital Signs Temp 36.5 C 01/20/18 08:00 Pulse 91 01/20/18 08:51 Resp 19 01/20/18 08:00 BP 143/82 H 01/20/18 08:52 Pulse Ox 97 01/20/18 08:00 Weight - Most Recent: 89.222 kg I&O - Last 24 hours: Intake & Output 01/19/18 01/20/18 01/20/18 22:59 06:59 14:59 Intake Total 3057 1143 Output Total 2645 3250 Balance 412 -2107 Lab Results - Last 24 hrs: Laboratory Results - last 24 hr 01/20/18 01/20/18 Range/Units 05:33 05:33 WBC 5.71 (4.0-11.0) K/uL RBC 4.41 L (4.50-5.90) M/uL Hgb 13.4 (13.0-17.0) g/dL Hct 39.1 (38.0-50.0) % MCV 88.7 (80.0-98.0) fL MCH 30.4 (27.0-32.0) pg MCHC 34.3 (31.0-37.0) g/dL RDW Std Deviation 43.0 (28.0-62.0) fl RDW Coeff of Joan 13 (11.0-15.0) % Plt Count 229 (150-400) K/uL MPV 10.50 (7.40-12.00) fL Neut % (Auto) 61.2 (48.0-80.0) % Lymph % (Auto) 20.8 (16.0-40.0) % [place] % (Auto) 13.8 (0.0-15.0) % Eos % (Auto) 3.7 (0.0-7.0) % Baso % (Auto) 0.5 (0.0-1.5) % Neut # (Auto) 3.5 (1.4-5.7) K/uL Lymph # (Auto) 1.2 (0.6-2.4) K/uL [place] # (Auto) 0.8 (0.0-0.8) K/uL Eos # (Auto) 0.2 (0.0-0.7) K/uL Baso # (Auto) 0.0 (0.0-0.1) K/uL Nucleated RBC % 0.0 /100WBC Nucleated RBCs # 0 K/uL Sodium 142 (136-148) mmol/L Potassium 4.2 (3.5-5.1) mmol/L Chloride 110 H (98-107) mmol/L Carbon Dioxide 23.3 (21.0-32.0) mmol/L BUN 13 (7.0-18.0) mg/dL Creatinine 0.9 (0.8-1.3) mg/dL Est Cr Clr Drug Dosing 118.92 mL/min Estimated GFR (MDRD) > 60.0 ml/min Glucose 91 (74-106) mg/dL Calcium 8.7 (8.5-10.1) mg/dL KATIA Results - Last 24 hrs: Microbiology 01/19/18 01:22 Aerobic Blood Culture - Preliminary Blood NO GROWTH AFTER 1 DAY Anaerobic Blood Culture - Final 01/19/18 01:18 Aerobic Blood Culture - Preliminary Blood NO GROWTH AFTER 1 DAY Anaerobic Blood Culture - Preliminary NO GROWTH AFTER 1 DAY Med Orders - Current: Current Medications Acetaminophen (Tylenol) 650 mg PO Q4H PRN PRN Reason: Pain Last Admin: 01/19/18 09:31 Dose: 650 mg Aripiprazole (Abilify) 10 mg PO DAILY [facility] Last Admin: 01/20/18 08:51 Dose: 10 mg Bupropion HCl (Wellbutrin) 300 mg PO DAILY [facility] Last Admin: 01/20/18 08:52 Dose: 300 mg Cyclobenzaprine HCl (Flexeril) 10 mg PO TID PRN PRN Reason: Muscle Spasm Last Admin: 01/20/18 09:04 Dose: 10 mg Hydroxyzine HCl (Atarax) 50 mg PO BID PRN PRN Reason: Anxiety Last Admin: 01/19/18 23:46 Dose: 50 mg Sodium Chloride (Normal Saline) 1,000 mls @ 125 mls/hr IV ASDIRECTED [facility] Last Admin: 01/20/18 00:52 Dose: 125 mls/hr Ceftriaxone Sodium 1,000 mg/ (Dextrose/Water) 50 mls @ 100 mls/hr IV Q24H [facility] Last Admin: 01/19/18 23:46 Dose: 100 mls/hr Ibuprofen (Motrin) 400 mg PO Q6H PRN PRN Reason: Pain Last Admin: 01/19/18 17:46 Dose: 400 mg Levetiracetam (Keppra) 500 mg PO BID [facility] Last Admin: 01/20/18 08:52 Dose: 500 mg Lisinopril (Prinivil) 20 mg PO DAILY [facility] Last Admin: 01/20/18 08:52 Dose: 20 mg Lorazepam (Ativan) 1 mg PO BEDTIME LEXUS Losartan Potassium (Cozaar) 50 mg PO DAILY [facility] Last Admin: 01/20/18 08:52 Dose: 50 mg Metoprolol Succinate (Toprol Xl) 25 mg PO DAILY [facility] Last Admin: 01/20/18 08:51 Dose: 25 mg Morphine Sulfate (Morphine) 2 mg IVPUSH Q3H PRN PRN Reason: Pain (severe 7-10) Last Admin: 01/20/18 10:08 Dose: 2 mg Prazosin HCl (Minpress) 1 mg PO BEDTIME LEXUS Sertraline HCl (Zoloft) 50 mg PO BEDTIME [facility] Discontinued Medications Sodium Chloride (Normal Saline) 1,000 mls @ 999 mls/hr IV STAT ONE Stop: 01/18/18 22:39 Last Admin: 01/18/18 21:45 Dose: 999 mls/hr Ceftriaxone Sodium/Dextrose 1 (gm/ Premix) 50 mls @ 100 mls/hr IV ONETIME ONE Stop: 01/18/18 23:38 Last Admin: 01/18/18 23:33 Dose: 100 mls/hr Ceftriaxone Sodium/Dextrose 1 (gm/ Premix) 50 mls @ 100 mls/hr IV Q24H [facility] Iopamidol (Isovue-370 (76%)) 100 ml IVPUSH ONETIME STA Stop: 01/18/18 21:54 Last Admin: 01/18/18 22:13 Dose: 100 ml Ketorolac Tromethamine (Toradol) 30 mg IVPUSH ONETIME ONE Stop: 01/18/18 21:40 Last Admin: 01/18/18 21:46 Dose: 30 mg Morphine Sulfate (Morphine) 2 mg IVPUSH Q3H PRN PRN Reason: Pain (severe 7-10) Ondansetron HCl (Zofran) 4 mg IVPUSH ONETIME ONE Stop: 01/18/18 21:40 Last Admin: 01/18/18 21:46 Dose: 4 mg Prazosin HCl (Minpress) 1 mg PO ONETIME ONE Stop: 01/20/18 23:23 Prazosin HCl (Minpress) 1 mg PO ONETIME ONE Stop: 01/19/18 23:23 Last Admin: 01/20/18 00:23 Dose: 1 mg
--- NOTE | 2018-01-20 11:41 | CT ---
EXAM DATE: 01/19/18 PATIENT'S AGE: 32 Patient: MARINA CHARLES Facility: [place], [place] Site . Site : [id number] Study: CT Abdomen/Pelvis [id number]/14/2018 10:40:07 PM Ordering Physician: Doctor Khanna Final Report: INDICATION: LLQ PAIN BEGAN @ 3 AM THIS DATE TECHNIQUE: CT abdomen and pelvis acquired with IV contrast. COMPARISON: None FINDINGS: Lower chest: Unremarkable. Liver: Unremarkable. Spleen: Unremarkable. Pancreas: Unremarkable. Gallbladder and bile ducts: Unremarkable. Kidneys: Unremarkable. Adrenal glands: Unremarkable. GI tract: Unremarkable. Appendix is not visualized. Vascular structures: Negative. No sign of aneurysm. Lymph nodes: Unremarkable. Miscellaneous: Unremarkable. No free air or significant free fluid. Pelvic Organs: Unremarkable. 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 IMPRESSION: No acute abnormality of the abdomen and pelvis. Dictated by Caleb Claudio MD @ 01/18/2018 11:26:51 PM Please note that all CT scans at this facility use dose modulation, iterative reconstruction, and/or weight-based dosing when appropriate to reduce radiation dose to as low as reasonably achievable. Dictated by: Caleb Claudio MD @ 01/18/2018 23:27:07 (Electronic Signature) Report Signed by Proxy. [facility]ITALMarilu
[2018-01-20] MEDS ORDERED: Prazosin 1 MG Cap PO SCH (21:00)
[2018-01-20] MEDS ORDERED: Sertraline 50 MG Tab PO SCH (21:00)
[2018-01-20] MEDS ORDERED: LORazepam 1 MG Tab PO SCH (21:00)
[2018-01-20] MEDS ORDERED: Prazosin 1 MG Cap PO ONE (23:22)
== END 2018-01-20 11:00 | disposition home or self-care (01) ==
LOC: MW.ED 21:06 → MW.MS 01-19 00:17
PROVIDERS: ADMIT Internal Medicine; ATTEND Internal Medicine
DX: N12 Tubulo-interstitial nephritis, not specified as acute or chronic (principal); I10 Essential (primary) hypertension; J45.909 Unspecified asthma, uncomplicated; F32.9 Major depressive disorder, single episode, unspecified; F17.210 Nicotine dependence, cigarettes, uncomplicated; Z79.2 Long term (current) use of antibiotics; Z79.899 Other long term (current) drug therapy; Z88.2 Allergy status to sulfonamides; Z98.890 Other specified postprocedural states
CPT/HCPCS: 36415; 74177; 74177-26; 80048; 80053; 81001; 82150; 83690; 85025; 87040; 87086; 87088; 87186; 87491; 87591; 96361; 96365; 96366; 96375; 99283; 99285-25; A9270-GY; G0378; J0696; J1885; J2270; J2405; J7040; J7060; Q9967

== ENCOUNTER 2019-07-03 10:23 | Emergency (ER) | payer BC, OTHER ==
[2019-07-03] MEDS ORDERED: Albuterol/Ipratropium 3.0-0.5 MG/3 ML Neb Soln NEB STA (11:22)
--- NOTE | 2019-07-03 11:26 | EDM.PDOC ---
ED HPI GENERAL MEDICAL PROBLEM - General Chief Complaint: ENT Problem Stated Complaint: COUGH, SOB Time Seen by Provider: 07/03/19 11:05 Source of Information: Reports: Patient History Limitations: Reports: No Limitations - History of Present Illness INITIAL COMMENTS - FREE TEXT/NARRATIVE: 34-year-old male presents today complaining of cough and shortness of breath for the past 1 week. Patient reports that he is also having sinus pain and reports his ribs hurt from coughing so much. His cough is productive of sputum that is metallic tasting. He has been taking [id number] Mucinex and acetaminophen. Patient denies having any fevers, sore throat, chest pain, nausea , vomiting or muscle aches. Denies any sick contacts. Diagnostics: CXR Therapeutics: Duonebs Throat Pain Score (Numeric/FACES): 8 - Related Data Allergies Allergy/AdvReac Type Severity Reaction Status Date / Time Sulfa (Sulfonamide Allergy Rash Verified 10/02/18 09:38 Antibiotics) Home Meds: Home Meds Albuterol Sulfate [Albuterol Sulfate Hfa] 18 gm IH Q4HR PRN 30 Days #1 hfa.aer.[id number] 07/03/19 [Rx] Azithromycin 250 mg PO DAILY 5 Days #6 tablet 07/03/19 [Rx] Past Medical History - Past Health History Medical/Surgical History: Denies Medical/Surgical History Cardiovascular History: Reports: Hypertension Respiratory History: Reports: Asthma Gastrointestinal History: Reports: Other (See Below) Other Gastrointestinal History: Malabsorption Neurological History: Reports: Seizure 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 Psychiatric History: Reports: Depression Oncologic (Cancer) History: Reports: Other (See Below) Other Oncologic History: adrenal - Infectious Disease History Infectious Disease History: Reports: None - Past Surgical History Other HEENT Surgeries/Procedures: wears eyeglasses Cardiovascular Surgical History: Reports: None Respiratory Surgical History: Reports: None GI Surgical History: Reports: Colonoscopy Social & Family History - Family History Family Medical History: Noncontributory - Tobacco Use Smoking Status *Q: Never Smoker Second Hand Smoke Exposure: No - Caffeine Use Caffeine Use: Reports: None Caffeine Use Comment: 1 drink every 3 days - Recreational Drug Use Recreational Drug Use: No ED ROS GENERAL - Review of Systems Review Of Systems: ROS reveals no pertinent complaints other than HPI. ED EXAM, GENERAL - Physical Exam Exam: See Below Exam Limited By: No Limitations General Appearance: Alert, Mild Distress Ears: Normal External Exam, Normal Canal, Normal TMs Nose: Normal Inspection, Normal Mucosa Throat/Mouth: Other (pharyngeal erythema, post-nasal drip) Head: Atraumatic, Normocephalic Neck: Normal Inspection, Supple Respiratory/Chest: Lungs Clear Cardiovascular: Regular Rate, Rhythm GI/Abdominal: Normal Bowel Sounds, Soft, Non-Tender, No Distention (Male) Exam: Deferred Rectal (Males) Exam: Deferred Neurological: Alert, Oriented, CN II-XII Intact Psychiatric: Normal Affect, Normal Mood Skin Exam: Warm, Dry, Intact Course - Vital Signs Last Recorded V/S: Last Vital Signs Temp 97.4 F 07/03/19 10:51 Pulse 75 07/03/19 10:51 Resp 18 07/03/19 10:51 BP 150/92 H 07/03/19 10:51 Pulse Ox 95 07/03/19 10:51 - Orders/Labs/Meds Orders: Active Orders 24 hr Category Date Time Status RT Aerosol Therapy [RC] ASDIRECTED Care 07/03/19 11:22 Active CXR [Chest 1V Frontal] [CR] Stat Exams 07/03/19 11:20 Ordered Meds: Medications Discontinued Medications Generic Name Dose Route Start Last Admin Trade Name Freq PRN Reason Stop Dose Admin Albuterol/Ipratropium 3 ml 07/03/19 11:22 Duoneb 3.0-0.5 Mg/3 Ml NEB 07/03/19 11:23 ONETIME STA - Re-Assessments/Exams Free Text/Narrative Re-Assessment/Exam: 07/03/19 11:43 CXR negative for any acute cardiopulmonary process per my read. Departure - Departure Time of Disposition: 11:43 Disposition: Home, Self-Care 01 Condition: Fair Clinical Impression: Bronchitis - Discharge Information *PRESCRIPTION DRUG MONITORING PROGRAM REVIEWED*: Not Applicable *COPY OF PRESCRIPTION DRUG MONITORING REPORT IN PATIENT ANNETTE: Not Applicable Instructions: Acute Bronchitis, Adult Referrals: PCP,None [Primary Care Provider] - Forms: ED Department Discharge Additional Instructions: Take all medications as prescribed. Return to ER for persistent or worsening symptoms. Follow-up with your primary care provider within 1 week. - My Orders Last 24 Hours: My Active Orders 07/03/19 11:20 CXR [Chest 1V Frontal] [CR] Stat 07/03/19 11:22 RT Aerosol Therapy [RC] ASDIRECTED - Assessment/Plan Last 24 Hours: My Active Orders 07/03/19 11:20 CXR [Chest 1V Frontal] [CR] Stat 07/03/19 11:22 RT Aerosol Therapy [RC] ASDIRECTED Plan: Script for Azithromycin Z-pack and albuterol inhaler sent to [place] pharmacy.
--- NOTE | 2019-07-03 12:13 | CR ---
Chest: Frontal view of the chest was obtained. Comparison: No prior chest x-ray. Heart size and mediastinum are normal. Lungs are clear. Bony structures are grossly intact. Impression: Nothing acute is seen on portable chest x-ray. Diagnostic code #1 MTDD
[2019-07-03 12:24] VITALS: BP 122/81; PULSE 77
== END 2019-07-03 12:27 | disposition home or self-care (01) ==
LOC: MW.ED 10:23
DX: J40 Bronchitis, not specified as acute or chronic (principal); I10 Essential (primary) hypertension; Z88.2 Allergy status to sulfonamides
CPT/HCPCS: 71045; 71045-26; 94640; 99283-25; J7620-GY

== ENCOUNTER 2020-10-07 09:44 | Emergency (ER) | payer BC ==
--- NOTE | 2020-10-07 10:06 | EDM.PDOC ---
ED HPI GENERAL MEDICAL PROBLEM - General Chief Complaint: Lower Extremity Injury/Pain Stated Complaint: INJURY TO LEFT KNEE Time Seen by Provider: 10/07/20 10:00 Source of Information: Reports: Patient History Limitations: Reports: No Limitations - History of Present Illness INITIAL COMMENTS - FREE TEXT/NARRATIVE: HISTORY AND PHYSICAL: History of present illness: Patient is a 35-year-old male who presents to the ED today with concern of left knee injury that occurred at about one this morning. Patient states that he was taking care of his intoxicated and was trying to put her to bed. Patient states that she began to fall he had tried to catch her and lowered her to the floor. Patient states in the event of doing so, he twisted his left knee and felt a "popping "sensation. Patient states that he did not fall or hit his head or lose consciousness. Patient states that he was able to go to sleep when he woke up he had a sharp stabbing pain of his left knee. Patient denies any prior knee injury. Patient states that he does have pain when he tries to straighten or completely bend his left knee. States he has not taken anything for his symptoms. Patient denies fever, chills, chest pain, shortness of breath, or cough. Denies headache, neck stiff ness, change in vision, syncope, or near syncope. Denies nausea, vomiting, abdominal pain, diarrhea, constipation, or dysuria. Has not noted any blood in urine or stool. Patient has been eating and drinking appropriately. Review of systems: As per history of present illness and below otherwise all systems reviewed and negative. Past medical history: As per history of present illness and as reviewed below otherwise noncontributory. Surgical history: As per history of present illness and as reviewed below otherwise noncontributory. Social history: See social history for further information Family history: As per history of present illness and as reviewed below otherwise noncontributory. Physical exam: General: Patient is alert, oriented, and in no acute distress. Patient sitting comfortably on exam table. HEENT: Atraumatic, normocephalic, pupils equal and reactive bilaterally, negative for conjunctival pallor or scleral icterus, mucous membranes moist, TMs normal bilaterally, throat clear, neck supple, nontender, trachea midline. No drooling or trismus noted. No meningeal signs. No hot potato voice noted. Lungs: Clear to auscultation, breath sounds equal bilaterally, chest nontender. Heart: S1S2, regular rate and rhythm without overt murmur Abdomen: Soft, nondistended, nontender. Negative for masses or hepatosplenomegaly. Negative for costovertebral tenderness. Pelvis: Stable nontender. Genitourinary: Deferred. Rectal: Deferred. Skin: Intact, warm, dry. No lesions or rashes noted. Extremities: No obvious deformity of the LLE. Patient does have limited ROM of the left knee due to pain. Patient does have pain with palpation of the medial aspect of the knee. No obvious effusion, erythema, rashes, lesions noted of the knee. Patient does have full ROM of the left ankle and hip without pain/deficit. DP/PT pulses intact of the LLE with cap refill <2 seconds. Otherwise, atr aumatic, negative for cords or calf pain. Neurovascular unremarkable. Neuro: Awake, alert, oriented. Cranial nerves II through XII unremarkable. Cerebellum unremarkable. Motor and sensory unremarkable throughout. Exam nonfocal. Notes: Discussed importance for follow-up with an orthopedic provider. Signs and symptoms that would prompt return to the ED thoroughly discussed with patient. Voices understanding and is agreeable to plan of care. Denies any further questions or concerns at this time. Diagnostics: Knee XR Therapeutics: Knee immobilizer / crutches--For left knee--to use until orthopedic evaluation for joint stabilization, DX: Knee strain r/o ligament injury Prescription: None Impression: Left knee strain r/o ligament injury Plan: 1. Rest, ice, elevate the affected extremity. You can apply ice 15 minutes on, 15 minutes off. Use knee immobilizer and crutches until orthopedic evaluation. 2. Tylenol and/or Ibuprofen as directed for pain management or discomfort. 3. Follow up with the Orthopedic provider as discussed. Return to the ED as needed and as discussed. Definitive disposition and diagnosis as appropriate pending reevaluation and review of above. Left Knee Pain Score (Numeric/FACES): 9 - Related Data Allergies Allergy/AdvReac Type Severity Reaction Status Date / Time Sulfa (Sulfonamide Allergy Rash Verified 10/07/20 10:03 Antibiotics) Home Meds: Home Meds . 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 Psychiatric History: Reports: Depression Oncologic (Cancer) History: Reports: Other (See Below) Other Oncologic History: adrenal - Infectious Disease History Infectious Disease History: Reports: None - Past Surgical History Other HEENT Surgeries/Procedures: wears eyeglasses Cardiovascular Surgical History: Reports: None Respiratory Surgical History: Reports: None GI Surgical History: Reports: Colonoscopy Social & Family History - Family History Family Medical History: No Pertinent Family History - Caffeine Use Caffeine Use: Reports: None Caffeine Use Comment: 1 drink every 3 days Review of Systems - Review of Systems Review Of Systems: Comprehensive ROS is negative, except as noted in HPI. ED EXAM, GENERAL - Physical Exam Exam: See Below (see dictation) Course - Vital Signs Last Recorded V/S: Last Vital Signs Temp 98.7 F 10/07/20 10:03 Pulse 85 10/07/20 10:03 Resp 17 10/07/20 10:03 BP 153/100 H 10/07/20 10:03 Pulse Ox 98 10/07/20 10:03 - Orders/Labs/Meds Orders: Active Orders 24 hr Category Date Time Status DME for Discharge [COMM] Stat Oth 10/07/20 11:00 Ordered Meds: Medications Discontinued Medications Generic Name Dose Route Start Last Admin Trade Name Freq PRN Reason Stop Dose Admin Hydrocodone Bitart/Acetaminophen 1 tab 10/07/20 10:15 10/07/20 10:38 [place] 325-5 Mg PO 10/07/20 10:16 1 tab ONETIME ONE Administration Ketorolac Tromethamine 60 mg 10/07/20 10:14 10/07/20 10:37 Toradol IM 10/07/20 10:15 60 mg ONETIME ONE Administration Departure - Departure Time of Disposition: 11:02 Disposition: Home, Self-Care 01 Clinical Impression: Strain of left knee Qualifiers: Encounter type: initial encounter Qualified Code(s): S86.912A - Strain of unspecified muscle(s) and tendon(s) at lower leg level, left leg, initial encounter - Discharge Information Referrals: PCP,None [Primary Care Provider] - Forms: ED Department Discharge Additional Instructions: The following information is given to patients seen in the emergency department who are being discharged to home. This information is to outline your options for follow-up care. We provide all patients seen in our emergency department with a follow-up referral. The need for follow-up, as well as the timing and circumstances, are variable depending upon the specifics of your emergency department visit. If you don't have a primary care physician on staff, we will provide you with a referral. We always advise you to contact your personal physician following an emergency department visit to inform them of the circumstance of the visit and for follow-up with them and/or the need for any referrals to a consulting specialist. The emergency department will also refer you to a specialist when appropriate. This referral assures that you have the opportunity for follow-up care with a specialist. All of these measure are taken in an effort to provide you with optimal care, which includes your follow-up. Under all circumstances we always encourage you to contact your private physician who remains a resource for coordinating your care. When calling for follow-up care, please make the office aware that this follow-up is from your recent emergency room visit. If for any reason you are refused follow-up, please contact the [facility] Emergency Department at and asked to speak to the emergency department charge nurse. [facility] [address] [place] [address] [address] [facility] - [facility]opedic Clinic Professional Building [address] [place] [place] [address] [address] Medina, Orthopedist [facility] [address] [place] [address] Dr Guzman - Dr Espinoza - Dr Rob [facility] at [facility] [address] [place] [address] [facility] [place] [address] [address] [facility] [address] [place] [address] 1. Rest, ice, elevate the affected extremity. You can apply ice 15 minutes on, 15 minutes off. Use knee immobilizer and crutches until orthopedic evaluation. 2. Tylenol and/or Ibuprofen as directed for pain management or discomfort. 3. Follow up with the Orthopedic provider as discussed. Return to the ED as needed and as discussed. Sepsis Event Note (ED) - Focused Exam Vital Signs: Vital Signs Temp Pulse Resp BP Pulse Ox 10/07/20 10:03 98.7 F 85 17 153/100 H 98 - My Orders Last 24 Hours: My Active Orders 10/07/20 11:00 DME for Discharge [COMM] Stat - Assessment/Plan Last 24 Hours: My Active Orders 10/07/20 11:00 DME for Discharge [COMM] Stat
[2020-10-07 10:08] VITALS: BP 153/100; PULSE 85
[2020-10-07] MEDS ORDERED: Ketorolac 60 MG/2 ML SDV IM ONE (10:14)
[2020-10-07] MEDS ORDERED: Acetaminophen/HYDROcodone 325-5 MG Tab PO ONE (10:15)
--- NOTE | 2020-10-07 11:30 | CR ---
INDICATION: Left knee pain, heard a pop. TECHNIQUE: X-ray left knee, 3 views. COMPARISON: None available. FINDINGS: The alignment is normal. Negative for acute fracture or dislocation. The overlying soft tissues within normal limits. No knee joint effusion is visualized. IMPRESSION: Negative for acute fracture or dislocation. Dictated by Corine Wagner MD @ Oct 07 2020 11:29AM Signed by Dr. Corine Wagner @ Oct 07 2020 11:29AM
== END 2020-10-07 11:52 | disposition home or self-care (01) ==
LOC: MW.ED 09:44
DX: S86.912A Strain of unspecified muscle(s) and tendon(s) at lower leg level, left leg, initial encounter (principal); J45.909 Unspecified asthma, uncomplicated; I10 Essential (primary) hypertension; Z88.2 Allergy status to sulfonamides; X50.1XXA Overexertion from prolonged static or awkward postures, initial encounter
CPT/HCPCS: 73562; 96372; 99283; A9270; J1885